=== PATIENT | female | born 1985 | race Caucasian/White ===

== ENCOUNTER 2023-12-01 17:36 | Emergency (ER) | payer BC ==
[~2023-12-01] VITALS: Ht 157.5 cm; Wt 97.5 kg
[2023-12-01 18:17] LABS: BASOPHILS # (AUTO) 0.2 (0.0-0.1); BASOPHILS % 1.2 % (0.0-1.0); EOSINOPHILS # (AUTO) 0.2 (0.0-0.4); EOSINOPHILS % 1.5 % (0.0-6.0); HEMATOCRIT 23.7 % (34.2-44.1); LYMPHOCYTES # (AUTO) 2.6 (1.0-3.2); LYMPHOCYTES % 20.2 % (18.0-39.1); MEAN CORPUSCULAR HEMOGLOBIN 16.9 pg (28-32); MEAN CORPUSCULAR HGB CONC 26.2 g/dL (31-35); MEAN CORPUSCULAR VOLUME 64.8 fL (81-99); MONOCYTES # (AUTO) 1.2 (0.2-0.8); MONOCYTES % 9.3 % (4.4-11.3); NEUTROPHILS # (AUTO) 8.6 (2.1-6.9); NEUTROPHILS % 66.8 % (38.7-80.0); PLATELET COUNT 665 x10e3/uL (140-360); RED BLOOD COUNT 3.66 x10e6/uL (3.6-5.1); RED CELL DISTRIBUTION WIDTH 20.4 % (11.7-14.4); WHITE BLOOD COUNT 12.88 x10e3/uL (4.8-10.8)
[2023-12-01 18:19] LABS: HEMOGLOBIN 6.2 g/dL (12.0-16.0)
[2023-12-01 18:31] LABS: ALBUMIN 3.9 g/dL (3.5-5.0); ALBUMIN/GLOBULIN RATIO 1.2 (0.8-2.0); ANION GAP 14.7 mmol/L (8-16); BILIRUBIN,TOTAL 0.2 mg/dL (0.2-1.2); CALCIUM 8.6 mg/dL (8.4-10.2); CREATININE, SERUM 0.75 mg/dL (0.57-1.11); POTASSIUM 3.7 mmol/L (3.5-5.1); TOTAL PROTEIN 7.2 g/dL (6.5-8.1)
[2023-12-01 18:38] LABS: TROPONIN I 0.007 ng/mL (0-0.300)
[2023-12-01 18:41] LABS: B-TYPE NATRIURETIC PEPTIDE2 < 10.0 pg/mL (0-100)
[2023-12-01] MEDS: ACETAMINOPHEN 325 MG TAB PO STA (19:11)
[2023-12-01] MEDS: SODIUM CHLORIDE 0.9% 1000ML 1,000 ML IV STA (19:11)
[2023-12-01 19:55] LABS: CLARITY,URINE CLEAR (CLEAR); COLOR,URINE YELLOW (YELLOW)
[2023-12-01 19:56] LABS: BILIRUBIN,URINE NEGATIVE (NEGATIVE); GLUCOSE, URINE NEGATIVE (NEGATIVE); KETONES,URINE NEGATIVE (NEGATIVE); LEUKOCYTE ESTERASE ,URINE TRACE (NEGATIVE); NITRITE,URINE NEGATIVE (NEGATIVE); PH,URINE 6 (5 - 7); PROTEIN,URINE DIPSTICK NEGATIVE (NEGATIVE); URINE UROBILINOGEN 0.2 mg/dL (0.2 - 1)
[2023-12-01 20:06] LABS: BACTERIA,URINE MODERATE /HPF; EPITHELIAL CELLS,URINE FEW /LPF; WBC,URINE (MAN) 0-5 /HPF (0-5)
[2023-12-01] MEDS: IBUPROFEN 600 MG TAB PO STA (20:29)
[2023-12-01] MEDS: SODIUM CHLORIDE 0.9% 250ML 250 ML IV ONE (21:43)
[2023-12-02] MEDS ORDERED: SODIUM CHLORIDE 0.9% 250ML 250 ML ONE (00:19)
[2023-12-02] MEDS ORDERED: ACETAMINOPHEN 325 MG TAB ONE (00:38)
[2023-12-02] MEDS: ACETAMINOPHEN 325 MG TAB PO ONE (00:43)
[2023-12-02] MEDS ORDERED: AMOX TR-K CLV1 EAC2 PO (03:55)
[2023-12-02 04:28] VITALS: BP 106/69; PULSE 80; RESP 18; TEMP 98.7
[2023-12-02 04:40] VITALS: PULSE 80; RESP 18; TEMP 98.7; O2SAT 100
== END 2023-12-02 04:40 | disposition home or self-care (01) ==
LOC: ER 17:42
DX: R50.9 Fever, unspecified (principal); A41.9 Sepsis, unspecified organism; D64.9 Anemia, unspecified; N92.0 Excessive and frequent menstruation with regular cycle; Z11.52 Encounter for screening for COVID-19
CPT/HCPCS: 36415; 71045; 80053; 81001; 82550; 83605; 83690; 83880; 84484; 85025; 86850; 86900; 86920; 87040; 87400; 93005; 99284; J2543 ×2; J7030; J7050 ×2; P9016; U0002